=== PATIENT | male | born 1950 | race Caucasian/White ===

== ENCOUNTER 2018-04-04 09:12 | Inpatient (IN) | payer OTHER, MEDICARE ==
--- NOTE | 2018-04-04 09:32 | EDM.PDOC ---
ED HPI GENERAL MEDICAL PROBLEM - General Chief Complaint: Upper Extremity Injury/Pain Stated Complaint: [id number] FROM [place] Time Seen by Provider: 04/04/18 09:31 Source of Information: Reports: Patient, RN, RN Notes Reviewed, Other ([facility] report ) History Limitations: Reports: No Limitations - History of Present Illness INITIAL COMMENTS - FREE TEXT/NARRATIVE: Pt presents to the ER with c/o swollen, red left arm. Patient states he fell while trying to sit in a lawn chair a "few weeks ago". Pt states he was given Cephalexin by the ND. He has been taking as prescribed he states, but the left arm has become more swollen, red, hot. Patient admits to fever and chills. Denies N/V/D, chest pain, SOB. Patient states he also scraped the left knee, but that is healing. Onset: Gradual Duration: Getting Worse Location: Reports: Upper Extremity, Left Quality: Reports: Ache, Burning, Pressure Severity: Moderate Improves with: Reports: None Worsens with: Reports: None Associated Symptoms: Reports: Fever/Chills Left Lower Arm Pain Score (Numeric/FACES): 4 - Related Data Allergies Allergy/AdvReac Type Severity Reaction Status Date / Time simvastatin Allergy Cannot Verified 04/04/18 09:18 Remember Home Meds: Home Meds Albuterol Sulfate [Proair Respiclick] 90 mcg IH PRN 04/04/18 [History] Albuterol/Ipratropium [DuoNeb 3.0-0.5 MG/3 ML] 3 ml INH PRN 04/04/18 [History] Budesonide/Formoterol Fumarate [Symbicort 160-4.5 Mcg Inhaler] 10.2 gm INH BID 04/04/18 [History] Gabapentin [Neurontin] 600 mg PO BEDTIME 04/04/18 [History] Hydrochlorothiazide 12.5 mg PO DAILY 04/04/18 [History] Meloxicam [Mobic] 15 mg PO DAILY 04/04/18 [History] Omeprazole 20 mg PO QPM 04/04/18 [History] Tamsulosin HCl 0.4 mg PO DAILY 04/04/18 [History] Timolol Maleate [Timoptic 0.5% Ophth Soln] 1 ml EYERT DAILY 04/04/18 [History] atorvaSTATin Calcium [Atorvastatin Calcium] 20 mg PO BEDTIME 04/04/18 [History] Past Medical History HEENT History: Reports: Hard of Hearing, Impaired Vision Cardiovascular History: Reports: High Cholesterol, Hypertension Respiratory History: Reports: COPD Gastrointestinal History: Reports: GERD Genitourinary History: Reports: Prostate Disorder, Retention, Urinary Musculoskeletal History: Reports: Arthritis - Past Surgical History GI Surgical History: Reports: Hernia, Inguinal Social & Family History - Family History Family Medical History: Noncontributory - Tobacco Use Smoking Status *Q: Current Every Day Smoker Years of Tobacco use: 55 Packs/Tins Daily: 0.5 - Caffeine Use Caffeine Use: Reports: Coffee, Soda - Alcohol Use Days Per Week of Alcohol Use: 7 Number of Drinks Per Day: 2 Total Drinks Per Week: 14 - Recreational Drug Use Recreational Drug Use: No Review of Systems - Review of Systems Review Of Systems: ROS reveals no pertinent complaints other than HPI. ED EXAM, GENERAL - Physical Exam Exam: See Below Exam Limited By: No Limitations General Appearance: Alert, WD/WN, No Apparent Distress Eye Exam: Bilateral Eye: EOMI, Normal Inspection Ears: Normal External Exam, Hearing Grossly Normal Nose: Normal Inspection Throat/Mouth: Normal Inspection, Normal Voice, No Airway Compromise Head: Atraumatic, Normocephalic Neck: Normal Inspection, Supple, Non-Tender, Full Range of Motion Respiratory/Chest: No Respiratory Distress, Lungs Clear, Normal Breath Sounds, No Accessory Muscle Use, Chest Non-Tender Cardiovascular: Normal Peripheral Pulses, No Edema, No Gallop, No JVD, No Murmur , No Rub, Irregularly Irregular Peripheral Pulses: 2+: Radial (L), Radial (R) GI/Abdominal: Normal Bowel Sounds, Soft, Non-Tender, No Organomegaly, No Distention, No Abnormal Bruit, No Mass (Male) Exam: Deferred Rectal (Males) Exam: Deferred Back Exam: Normal Inspection, Full Range of Motion, NT Extremities: Normal Inspection, Non-Tender, No Pedal Edema, Normal Capillary Refill, Limited Range of Motion Neurological: Alert, Oriented, CN II-XII Intact, Normal Cognition, Normal Gait, Normal Reflexes, No Motor/Sensory Deficits Psychiatric: Normal Affect, Normal Mood Skin Exam: Warm, Dry, Erythema, Other (Cellulitis, induration lower left arm, hand, moving up into the left upper arm. ) Lymphatic: No Adenopathy Course - Vital Signs Last Recorded V/S: Last Vital Signs Temp 98.5 F 04/04/18 11:37 Pulse 76 04/04/18 11:37 Resp 18 04/04/18 11:37 BP 139/88 04/04/18 11:37 Pulse Ox 99 04/04/18 11:37 - Orders/Labs/Meds Orders: Active Orders 24 hr Category Date Time Status Peripheral IV Care [RC] . DIRECTED Care 04/04/18 09:40 Active Forearm wo Cont Lt [CT] Urgent Exams 04/04/18 10:41 Taken CULTURE BLOOD [BC] Stat Lab 04/04/18 09:46 Received CULTURE BLOOD [BC] Stat Lab 04/04/18 09:57 Received CULTURE WOUND [RM] Urgent Lab 04/04/18 09:40 Received Sodium Chloride 0.9% [Saline Flush] Med 04/04/18 09:39 Active 10 ml FLUSH ASDIRECTED PRN Blood Culture x2 Reflex Set [OM.PC] Stat Oth 04/04/18 09:40 Ordered Peripheral IV Insertion Adult [OM.PC] Stat Oth 04/04/18 09:39 Ordered Medication Orders Sodium Chloride (Saline Flush) 10 ml FLUSH ASDIRECTED PRN PRN Reason: Keep Vein Open Last Admin: 04/04/18 10:29 Dose: 10 ml Labs: Laboratory Tests 04/04/18 04/04/18 04/04/18 Range/Units 09:46 09:46 09:46 WBC 7.9 (5.0-10.0) 10^3/uL RBC 4.00 L (4.6-6.2) 10^6/uL Hgb 13.5 L (14.0-18.0) g/dL Hct 38.4 L (40.0-54.0) % MCV 96.0 (80-100) fL MCH 33.8 (27.0-34.0) pg MCHC 35.2 H (33.0-35.0) g/dL Plt Count 198 (150-450) 10^3/uL Neut % (Auto) 70.6 (42.2-75.2) % Lymph % (Auto) 13.2 L (20.5-50.1) % Cass % (Auto) 14.9 H (2-8) % Eos % (Auto) 1.0 (1.0-3.0) % Baso % (Auto) 0.3 (0.0-1.0) % Add Manual Diff Yes Neutrophils % (Manual) 67 (42-75) % Band Neutrophils % 1 % Lymphocytes % (Manual) 18 L (20-50) % Monocytes % (Manual) 10 H (2-8) % Eosinophils % (Manual) 2 (1-3) % Basophils % (Manual) 2 Toxic Granulation 2+ moderate Platelet Estimate Adequate Tear Drop Cells 1+ slight ESR 64 H (0-15) mm/hr Sodium 132 L (135-145) mmol/L Potassium 2.7 L (3.6-5.0) mmol/L Chloride 97 L (101-111) mmol/L Carbon Dioxide 27.0 (21.0-31.0) mmol/L Anion Gap 10.7 BUN 9 (7-18) mg/dL Creatinine 0.7 (0.6-1.3) mg/dL Est Cr Clr Drug Dosing 106.08 mL/min Estimated GFR (MDRD) > 60 BUN/Creatinine Ratio 12.85 Glucose 175 H (74-105) mg/dL Lactic Acid (0.5-2.2) mmol/L Calcium 8.3 L (8.4-10.2) mg/dl Total Bilirubin 0.4 (0.2-1.0) mg/dL AST 66 H (10-42) IU/L ALT 56 (10-60) IU/L Alkaline Phosphatase 113 (42-121) IU/L C-Reactive Protein 5.8 H (0.0-1.3) mg/dL Total Protein 6.6 L (6.7-8.2) g/dl Albumin 2.9 L (3.2-5.5) g/dl Globulin 3.7 Albumin/Globulin Ratio 0.78 /14/18 Range/Units 09:46 WBC (5.0-10.0) 10^3/uL RBC (4.6-6.2) 10^6/uL Hgb (14.0-18.0) g/dL Hct (40.0-54.0) % MCV (80-100) fL MCH (27.0-34.0) pg MCHC (33.0-35.0) g/dL Plt Count (150-450) 10^3/uL Neut % (Auto) (42.2-75.2) % Lymph % (Auto) (20.5-50.1) % Cass % (Auto) (2-8) % Eos % (Auto) (1.0-3.0) % Baso % (Auto) (0.0-1.0) % Add Manual Diff Neutrophils % (Manual) (42-75) % Band Neutrophils % % Lymphocytes % (Manual) (20-50) % Monocytes % (Manual) (2-8) % Eosinophils % (Manual) (1-3) % Basophils % (Manual) Toxic Granulation Platelet Estimate Tear Drop Cells ESR (0-15) mm/hr Sodium (135-145) mmol/L Potassium (3.6-5.0) mmol/L Chloride (101-111) mmol/L Carbon Dioxide (21.0-31.0) mmol/L Anion Gap BUN (7-18) mg/dL Creatinine (0.6-1.3) mg/dL Est Cr Clr Drug Dosing mL/min Estimated GFR (MDRD) BUN/Creatinine Ratio Glucose (74-105) mg/dL Lactic Acid 1.9 (0.5-2.2) mmol/L Calcium (8.4-10.2) mg/dl Total Bilirubin (0.2-1.0) mg/dL AST (10-42) IU/L ALT (10-60) IU/L Alkaline Phosphatase (42-121) IU/L C-Reactive Protein (0.0-1.3) mg/dL Total Protein (6.7-8.2) g/dl Albumin (3.2-5.5) g/dl Globulin Albumin/Globulin Ratio Meds: Medications Generic Name Dose Route Start Last Admin Trade Name Freq PRN Reason Stop Dose Admin Sodium Chloride 10 ml 04/04/18 09:39 04/04/18 10:29 Saline Flush FLUSH 10 ml ASDIRECTED PRN Administration Keep Vein Open Discontinued Medications Generic Name Dose Route Start Last Admin Trade Name Freq PRN Reason Stop Dose Admin Vancomycin HCl 1.5 gm/ Sodium 500 mls @ 334 mls/hr 04/04/18 09:40 04/04/18 10 :29 Chloride IV 04/04/18 11:09 334 mls/hr ONETIME ONE Administration Departure - Departure Time of Disposition: 12:00 Disposition: Admitted As Inpatient 65 Condition: Fair Clinical Impression: Hypokalemia Cellulitis Qualifiers: Site of cellulitis: extremity Site of cellulitis of extremity: upper extremity Laterality: left Qualified Code(s): L03.114 - Cellulitis of left upper limb - Discharge Information - My Orders Last 24 Hours: My Active Orders 04/04/18 09:39 Sodium Chloride 0.9% [Saline Flush] 10 ml FLUSH ASDIRECTED PRN Peripheral IV Insertion Adult [OM.PC] Stat 04/04/18 09:40 Peripheral IV Care [RC] . DIRECTED CULTURE WOUND [RM] Urgent Blood Culture x2 Reflex Set [OM.PC] Stat 04/04/18 09:46 CULTURE BLOOD [BC] Stat 04/04/18 09:57 CULTURE BLOOD [BC] Stat 04/04/18 10:41 Forearm wo Cont Lt [CT] Urgent - Assessment/Plan Last 24 Hours: My Active Orders 04/04/18 09:39 Sodium Chloride 0.9% [Saline Flush] 10 ml FLUSH ASDIRECTED PRN Peripheral IV Insertion Adult [OM.PC] Stat 04/04/18 09:40 Peripheral IV Care [RC] . DIRECTED CULTURE WOUND [RM] Urgent Blood Culture x2 Reflex Set [OM.PC] Stat 04/04/18 09:46 CULTURE BLOOD [BC] Stat 04/04/18 09:57 CULTURE BLOOD [BC] Stat 04/04/18 10:41 Forearm wo Cont Lt [CT] Urgent
[2018-04-04] MEDS ORDERED: Vancomycin 1.5 GM in Sodium Chloride 0.9% 500 ML IV ONE (09:40)
[2018-04-04 10:25] LABS: ANION GAP 10.7; CHLORIDE,CL 97 mmol/L (101-111); SODIUM,NA 132 mmol/L (135-145)
[2018-04-04] MEDS: Sodium Chloride 0.9% 10 ML Syringe FLUSH PRN ×6 (10:29→20:50)
--- NOTE | 2018-04-04 12:30 | CT ---
CLINICAL HISTORY: 68-year-old hypertensive 183 pound male smoker injured left forearm in a fall (2 we eks ago). Clinical "cellulitis". Rule out underlying fracture, foreign body or inflammatory periostit is. SCAN TECHNIQUE: Volume acquisition of data from an unenhanced CT scan of the left forearm including r adial/ulnar long bones, left elbow, left wrist, and left hand. All data archived in the PACS system f or storage, reformatting and study. INTERPRETATION: Homogeneous normal bone density. No sign of pathologic skeletal lesion, left long bone radial/ulnar fracture or elbow/wrist joint disl ocation. Mild reactive sclerosis radial carpal joint and cystic changes lunate/triquetrum proximal carpal row left wrist. Left hand positioned "palm down" demonstrating subcutaneous edema consistent with inflammation or "ce llulitis" dorsal ulnar aspect of the mid and proximal left forearm. No foreign bodies. No puncture wo und or subcutaneous air. No abnormal inflammatory periostitis of the underlying ulna or radius. CONCLUSION: No sign of fracture or long bone infection left forearm.
[2018-04-04] MEDS ORDERED: Acetaminophen/HYDROcodone 325-10 MG Tab PO PRN (12:41)
[2018-04-04] MEDS ORDERED: Morphine 2 MG/ML Syringe IVPUSH PRN (12:41)
[2018-04-04] MEDS ORDERED: Ondansetron 4 MG Tab.DIS PO PRN (12:41)
[2018-04-04] MEDS ORDERED: Zolpidem 5 MG Tab PO PRN (12:41)
[2018-04-04] MEDS ORDERED: Albuterol 6.7 GM Inhaler INH PRN (12:45)
[2018-04-04] MEDS ORDERED: Omeprazole 20 MG Cap.CR PO PRN (12:45)
[2018-04-04] MEDS ORDERED: Potassium Chloride 10 MEQ Tab.ER PO ONE (13:06)
[2018-04-04] MEDS: Potassium Chloride 10 MEQ Tab.ER PO SCH ×2 (13:40→18:15)
[2018-04-04] MEDS: Piperacillin/Tazobactam 3.375 GM in Sodium Chloride 0.9% 100 ML IV SCH ×2 (14:32→18:15)
[2018-04-04] MEDS: Gabapentin 300 MG Cap PO SCH (20:51)
[2018-04-04] MEDS: atorvaSTATin 20 MG Tab PO SCH (20:51)
[2018-04-04] MEDS: Formoterol/Mometasone 200-5 MCG 8.8 GM Inhaler IH SCH (21:00)
[2018-04-04] MEDS ORDERED: Vancomycin 1 GM SDV ONE (23:44)
[2018-04-05] MEDS: Sodium Chloride 0.9% 10 ML Syringe FLUSH PRN ×5 (00:17→06:13)
[2018-04-05] MEDS: Piperacillin/Tazobactam 3.375 GM in Sodium Chloride 0.9% 100 ML IV SCH ×5 (00:18→23:30)
[2018-04-05 06:47] LABS: ANION GAP 9.2; CHLORIDE,CL 104 mmol/L (101-111); SODIUM,NA 137 mmol/L (135-145)
--- NOTE | 2018-04-05 07:27 | HP ---
DATE OF SERVICE: 04/04/2018 CHIEF COMPLAINT: Swelling and pain to the left forearm. HISTORY OF PRESENTING ILLNESS: Mr. Leanna Flores is a 68-year-old male with medical history significant for hypertension, hyperlipidemia, history of chronic obstructive pulmonary airway disease, chronic alcohol use, and chronic tobacco use who presented to the ER today with complaints of having pain and swelling to the left forearm and noted to have intense cellulitis needing admission to the hospital. At this time, the patient claims that few weeks back he fell down on his back and injured his left forearm and noted to have a scab and last week he had an x- ray of the back and at that time the scab fell off, and since then has been resulting in increased swelling and pain to the left forearm. He grades the pain as 5 to 6/10 in intensity, aggravated on movement, relieved partially with pain medication, nonradiating type of pain, not associated with nausea or vomiting. Denied any fevers or chills at home. Denies any chest pain. No shortness of breath. No abdominal pain. The patient denied any history of chest pains on exertion, but has mild dyspnea on exertion. No history of orthopnea or paroxysmal nocturnal dyspnea. The patient denied any history of hematemesis, hematochezia, or melenic stools. Normal bowel and bladder habits otherwise. REVIEW OF SYSTEMS: A complete review of system including skin, ear, nose, and throat, cardiovascular system, respiratory system, gastrointestinal system, genitourinary system, hematology, oncology, neurology, allergy, immunology, constitutional were all evaluated. PAST MEDICAL HISTORY: Significant for hypertension, hyperlipidemia, chronic obstructive pulmonary airway disease, chronic alcohol use, chronic tobacco use. PAST SURGICAL HISTORY: Significant for tonsillectomy and hernia repair. FAMILY HISTORY: Significant for cancer in his father, hypertension and heart disease in his mother. Diabetes in his brother and his younger brother . SOCIAL HISTORY: The patient continues to smoke for 5-6 cigarettes a day and continues to drink alcohol every day, 1 beer a day. ALLERGIES: The patient says he has allergy to simvastatin. HOME MEDICATIONS: Include: 1. Lipitor 20 mg at bedtime. 2. Sildenafil 100 mg daily as needed. 3. Omeprazole 20 mg as needed. 4. Hydrochlorothiazide 12.5 mg daily. 5. Neurontin 600 mg at bedtime. 6. Symbicort 10.2 g inhalation twice a day. 7. DuoNeb 3 mL inhalation every 12 hours as needed. PHYSICAL EXAMINATION: Vital Signs: Temperature of 98.7, pulse of 73, blood pressure 130/75, respiratory rate of 20, and saturating at 98%. General Appearance: Patient is well oriented to time, place, and person. Follows commands spontaneously. Cardiovascular System: S1, S2 heard with normal intensity. No gallops. Respiratory System: Clear to auscultation bilaterally. No wheeze. No crepitations. Abdomen: Soft. Bowel sounds positive. Nontender. Extremities: No edema in bilateral lower extremities. The patient noted to have extensive erythema and swelling and tenderness to the left forearm from the elbow towards his hand. No active secretions noted but desquamation noted. Pulses well felt on the left upper extremity. NEUROLOGY: No gross focal neurological deficits. LABORATORY DATA: WBC 7.9, hemoglobin 13.5, hematocrit 38.4, platelet count 198. Sodium 132, potassium 2.7, chloride 97, bicarb 27, BUN 9, creatinine 0.7. Lactic acid 1.9. AST 66, ALT 56. C-reactive protein 5.9. ASSESSMENT: 1. Cellulitis involving the left forearm. 2. Hypertension. 3. Hyperlipidemia. 4. Chronic tobacco use. 5. Chronic alcohol use. PLAN: 1. Cellulitis. The patient is noted to have cellulitis involving the left forearm. This occurred after had a fall and developed a scab. We will have him on IV antibiotic Zosyn and vancomycin. We will follow with the blood cultures and titrate the antibiotics. His lactic acid is within normal limits. No signs of sepsis noted at this time. We will educate the patient to keep his left upper extremity elevated. We will consult occupational therapy to see if the patient can have lymphedema wraps to decrease the swelling and pain. We will closely follow. 2. Hypertension. The patient usually takes hydrochlorothiazide at home. We will hold the hydrochlorothiazide secondary to hypokalemia. He is also noted to be on lisinopril, continue the same. 3. DVT prophylaxis. We will have him on Lovenox for DVT prophylaxis. 4. Chronic alcohol use and tobacco use. The patient is educated about tobacco cessation and alcohol cessation. We will consider nicotine transdermal patch if he wants. The patient was explained about ill effects of drinking and smoking on his health and strongly encouraged him to quit drinking and smoking. 5. Code status. The patient wants to be DNR/DNI. 6. Discussed with Eli, ER physician, regarding the plan of care. Reviewed the labs and medications. Reviewed the old charts. [facility] /[id number]
[2018-04-05] MEDS: Potassium Chloride 10 MEQ Tab.ER PO SCH ×3 (09:48→17:18)
[2018-04-05] MEDS: Enoxaparin 40 MG/0.4 ML Syringe SUBCUT SCH (09:52)
[2018-04-05] MEDS: Formoterol/Mometasone 200-5 MCG 8.8 GM Inhaler IH SCH ×2 (10:04→20:52)
[2018-04-05] MEDS: Acetaminophen 325 MG Tab PO PRN ×2 (10:28→20:53)
--- NOTE | 2018-04-05 13:57 | PN ---
DATE: 04/05/2018 SUBJECTIVE: Mr. Roge Ram is a 68-year-old male with medical history significant for hypertension, hyperlipidemia, chronic obstructive pulmonary disease, chronic alcohol use, chronic tobacco use, admitted with complaints of left arm cellulitis and swelling and erythema. For the last 24 hours, the patient was started on IV antibiotics, broad-spectrum with IV Zosyn, vancomycin. He continues to have swelling and little pain but improved from the time of admission. His swelling in the hand got improved, but continues to have the swelling in the left forearm. He denies any chest pain. No shortness of breath. No abdominal pain. No nausea. No vomiting. No diarrhea. REVIEW OF SYSTEMS: Cardiovascular, respiratory, gastrointestinal, neurology, constitutional were all evaluated. PHYSICAL EXAMINATION: Vital Signs: Temperature of 98.6, pulse of 69, blood pressure of 132/65, respiratory rate of 20, saturating at 96%. General Appearance: The patient is alert and oriented to time, place, and person. Follows commands spontaneously. Cardiovascular System: S1, S2 heard with normal intensity. No gallops. Respiratory System: Clear to auscultation bilaterally. No wheeze. No crepitations. Abdomen: Soft. Bowel sounds positive. Nontender. No rigidity. Extremities: No edema, bilateral lower extremities. Left forearm continues to have swelling, but improved from the time of admission. Continues to have erythema and superficial skin peeling from the swelling. His pulses are felt well. His left hand swelling is improved from admission. Neurology: No gross focal neurological deficit. MEDICATIONS: Reviewed. Continue with, 1. Tylenol 650 every 4 hours as needed for pain and fever. 2. [place] 10/325 mg every 4 hours as needed for pain. 3. Albuterol as needed. 4. DuoNeb q.12 hours as needed. 5. Lipitor 20 mg at bedtime. 6. Lovenox 40 mg subcutaneous daily. 7. Neurontin 600 mg at bedtime. 8. Morphine 2 mg IV every 2 hours as needed for severe pain. 9. Omeprazole 20 mg at bedtime. 10.Zosyn every 6 hours. 11.Potassium chloride 20 mg 3 times a day. 12.Vancomycin, pharmacy to dose. 13.Ambien 5 mg at bedtime as needed for sleep. LABORATORY DATA: Labs reviewed, WBC 8.8, hemoglobin 11.6, hematocrit 33.9, platelet count 209. Sodium 137, potassium 3.2, chloride 104, bicarb 27, BUN 10, creatinine 0.7. ASSESSMENT: 1. Cellulitis. 2. Hypokalemia. 3. Hypertension. 4. Hyperlipidemia. 5. Chronic tobacco use. 6. Chronic alcohol use. 7. Chronic obstructive pulmonary disease. PLAN: 1. Cellulitis. The patient has been admitted with left forearm cellulitis which seems to be improved. Continue with IV antibiotics, Zosyn, vancomycin. Pharmacy to dose the vancomycin. Awaiting for blood cultures and we will titrate the antibiotics once we have the culture reports available. The patient is encouraged to keep his left elevated to improve its swelling and pain. Continue with pain medications. 2. Hypertension. The patient's blood pressure seems to be well controlled. He was on hydrochlorothiazide, but we had to hold the hydrochlorothiazide secondary to hypokalemia. We will resume the hydrochlorothiazide once he is more stable. 3. COPD, remains stable. Continue with current inhalation nebulizer treatment. [facility] /[id number]
[2018-04-05] MEDS: Albuterol/Ipratropium 3.0-0.5 MG/3 ML Neb Soln INH PRN (16:47)
[2018-04-05] MEDS ORDERED: ALPRAZolam 0.5 MG Tab PO PRN (16:50)
[2018-04-05] MEDS: ALPRAZolam 0.5 MG Tab PO PRN (17:17)
[2018-04-05] MEDS: atorvaSTATin 20 MG Tab PO SCH (20:53)
[2018-04-05] MEDS: Gabapentin 300 MG Cap PO SCH (20:53)
[2018-04-06] MEDS: Piperacillin/Tazobactam 3.375 GM in Sodium Chloride 0.9% 100 ML IV SCH ×3 (06:02→17:40)
[2018-04-06] MEDS: Enoxaparin 40 MG/0.4 ML Syringe SUBCUT SCH (08:13)
[2018-04-06] MEDS: Potassium Chloride 10 MEQ Tab.ER PO SCH ×3 (08:13→17:38)
[2018-04-06] MEDS: Formoterol/Mometasone 200-5 MCG 8.8 GM Inhaler IH SCH ×2 (08:14→21:20)
[2018-04-06] MEDS: Sodium Chloride 0.9% 10 ML Syringe FLUSH PRN ×3 (10:28→17:40)
--- NOTE | 2018-04-06 13:35 | PN ---
DATE: 04/06/2018 HISTORY OF PRESENT ILLNESS: Mr. Roge Ram is a 68-year-old male with medical history significant for hypertension, hyperlipidemia, chronic obstructive pulmonary disease, chronic alcohol use, chronic tobacco use, was admitted to the hospital with complaints of left arm swelling and pain and noted to have cellulitis. For the last 24 hours, the patient was noted to have a low-grade temperature of 100 overnight. He is continued on IV antibiotics. He also had some anxiety spells requiring Xanax. He denies any chest pains or shortness of breath. No abdominal pain. No nausea. No vomiting. No diarrhea. REVIEW OF SYSTEMS: Cardiovascular, respiratory, gastrointestinal, neurology, constitutional were all evaluated. PHYSICAL EXAMINATION: Vital Signs: Temperature of 99.1, T-max of 100.6, pulse of 81, blood pressure of 126/63, respiratory rate of 20, saturating at 96% on room air. General Appearance: The patient is well oriented to time, place, and person. Follows commands spontaneously. Cardiovascular System: S1, S2 heard with normal intensity. No gallops. Respiratory System: Clear to auscultation bilaterally. No wheeze. No crepitations. Abdomen: Soft. Bowel sounds positive. Nontender. No rigidity. Extremities: No edema, bilateral lower extremities. Erythema and swelling noted towards the left forearm. Swelling improved on the hand. Pulses felt well. MEDICATIONS: Reviewed, continue the same. 1. Continue with Lovenox for DVT prophylaxis. 2. Neurontin at bedtime. 3. Zosyn q.6 hourly. 4. Vancomycin, pharmacy to dose. 5. Ambien at bedtime as needed for sleep. 6. Xanax as needed for anxiety. LABORATORY DATA: Potassium 3.6. ASSESSMENT: 1. Cellulitis involving the left forearm. 2. Anxiety. 3. Hypokalemia. 4. Hypertension. 5. Hyperlipidemia. 6. Chronic obstructive pulmonary disease. PLAN: 1. Cellulitis. The patient is currently on Zosyn, vancomycin. His skin culture is showing some Staph and Streptococcus, unsure if this is a contaminant, but his blood cultures remained negative. Continue with current IV antibiotic regimen. We will further titrate the antibiotics. 2. Chronic obstructive pulmonary disease. The patient is currently on inhalation treatments and nebulizers, continue the same. 3. Anxiety. The patient often has anxiety attacks. We started on Xanax, continue the same. 4. DVT prophylaxis. Continue with Lovenox for DVT prophylaxis. 5. Hypokalemia. The patient is on oral potassium chloride. Recheck a basic metabolic panel in a.m. [facility] /[id number]
[2018-04-06] MEDS: Acetaminophen 325 MG Tab PO PRN (16:49)
[2018-04-06] MEDS: Gabapentin 300 MG Cap PO SCH (21:19)
[2018-04-06] MEDS: atorvaSTATin 20 MG Tab PO SCH (21:19)
[2018-04-07] MEDS: Piperacillin/Tazobactam 3.375 GM in Sodium Chloride 0.9% 100 ML IV SCH ×6 (00:35→22:22)
[2018-04-07] MEDS: Acetaminophen 325 MG Tab PO PRN ×2 (06:13→22:32)
[2018-04-07] MEDS: Potassium Chloride 10 MEQ Tab.ER PO SCH ×2 (08:37→12:35)
[2018-04-07] MEDS: Enoxaparin 40 MG/0.4 ML Syringe SUBCUT SCH (08:37)
[2018-04-07] MEDS: Formoterol/Mometasone 200-5 MCG 8.8 GM Inhaler IH SCH ×2 (08:38→21:59)
[2018-04-07] MEDS ORDERED: Piperacillin/Tazobactam 3.375 GM in Sodium Chloride 0.9% 100 ML IV SCH (12:30)
--- NOTE | 2018-04-07 12:36 | PCM.PN ---
- General Info Date of Service: 04/07/18 Subjective Update: The patient was admitted with left upper extremity redness, swelling. He has been treated for cellulitis. He feels that the swelling has much improved, redness improved and involves a smaller area. There is no associated chest pain, abdominal pain. He has been urinating well. - Patient Data Vitals - Most Recent: Last Vital Signs Temp 37.3 C 04/07/18 11:00 Pulse 80 04/07/18 11:00 Resp 20 04/07/18 11:00 BP 137/95 H 04/07/18 11:00 Pulse Ox 91 L 04/07/18 11:00 Weight - Most Recent: 81.647 kg I&O - Last 24 Hours: Intake & Output 04/06/18 04/07/18 04/07/18 22:59 06:59 14:59 Intake Total 770 374 200 Output Total 325 Balance 770 374 -125 Lab Results Last 24 Hours: Laboratory Results - last 24 hr 04/07/18 04/07/18 04/07/18 Range/Units 10:03 10:03 10:03 WBC 14.5 H (5.0-10.0) 10^3/uL RBC 3.37 L (4.6-6.2) 10^6/uL Hgb 11.5 L (14.0-18.0) g/dL Hct 33.8 L (40.0-54.0) % MCV 100.3 H (80-100) fL MCH 34.1 H (27.0-34.0) pg MCHC 34.0 (33.0-35.0) g/dL Plt Count 276 (150-450) 10^3/uL Sodium 136 (135-145) mmol/L Potassium 4.0 (3.6-5.0) mmol/L Chloride 105 (101-111) mmol/L Carbon Dioxide 20.0 L (21.0-31.0) mmol/L Anion Gap 15.0 BUN 18 (7-18) mg/dL Creatinine 2.6 H D (0.6-1.3) mg/dL Est Cr Clr Drug Dosing 27.69 mL/min Estimated GFR (MDRD) 25 Glucose 136 H (74-105) mg/dL Calcium 8.3 L (8.4-10.2) mg/dl Vancomycin Trough 36.0 H (10-15) ug/ml Go Results Last 24 Hours: Microbiology 04/04/18 09:57 Aerobic Blood Culture - Preliminary Blood - Venous NO GROWTH AFTER 3 DAYS Anaerobic Blood Culture - Preliminary NO GROWTH AFTER 3 DAYS 04/04/18 09:46 Aerobic Blood Culture - Preliminary Blood - Venous - Lab Draw NO GROWTH AFTER 3 DAYS Anaerobic Blood Culture - Preliminary NO GROWTH AFTER 3 DAYS 04/04/18 09:40 Wound Culture - Final Arm, Left Staphylococcus Aureus Streptococcus Group A Med Orders - Current: Current Medications Acetaminophen (Tylenol) 650 mg PO Q4H PRN PRN Reason: Pain (Mild 1-3)/fever Last Admin: 04/07/18 06:13 Dose: 650 mg Hydrocodone Bitart/Acetaminophen ([place] 325-10 Mg) 1 tab PO Q4H PRN PRN Reason: Pain (moderate 4-6) Albuterol (Proventil Hfa) 0 gm INH Q6H PRN PRN Reason: Shortness of Breath Albuterol/Ipratropium (Duoneb 3.0-0.5 Mg/3 Ml) 3 ml INH Q12H PRN PRN Reason: Shortness of Breath Last Admin: 04/05/18 16:47 Dose: 3 ml Alprazolam (Xanax) 1 mg PO Q8H PRN PRN Reason: Anxiety Last Admin: 04/05/18 17:17 Dose: 1 mg Atorvastatin Calcium (Lipitor) 20 mg PO BEDTIME [facility] Last Admin: 04/06/18 21:19 Dose: 20 mg Enoxaparin Sodium (Lovenox) 40 mg SUBCUT DAILY [facility] Last Admin: 04/07/18 08:37 Dose: 40 mg Gabapentin (Neurontin) 600 mg PO BEDTIME [facility] Last Admin: 04/06/18 21:19 Dose: 600 mg Piperacillin Sod/Tazobactam (Sod 3.375 gm/ Sodium Chloride) 100 mls @ 200 mls/ hr IV Q8H [facility] Mometasone Furoate/Formoterol Fumar (Dulera 200-5 Mcg) 2 puff IH BID [facility] Last Admin: 04/07/18 08:38 Dose: 2 puff Morphine Sulfate (Morphine) 2 mg IVPUSH Q2H PRN PRN Reason: Pain (severe 7-10) Omeprazole (Omeprazole) 20 mg PO BEDTIME PRN PRN Reason: Heartburn Ondansetron HCl (Zofran Odt) 4 mg PO Q4H PRN PRN Reason: nausea, able to take PO Paroxetine HCl (Paxil) 20 mg PO DAILY [facility] Sodium Chloride (Saline Flush) 10 ml FLUSH ASDIRECTED PRN PRN Reason: Keep Vein Open Last Admin: 04/06/18 17:40 Dose: 10 ml Zolpidem Tartrate (Ambien) 5 mg PO BEDTIME PRN PRN Reason: Sleep Discontinued Medications Alprazolam (Xanax) 0.5 mg PO Q8H PRN PRN Reason: Anxiety Vancomycin HCl 1.5 gm/ Sodium (Chloride) 500 mls @ 334 mls/hr IV ONETIME ONE Stop: 04/04/18 11:09 Last Admin: 04/04/18 10:29 Dose: 334 mls/hr Piperacillin Sod/Tazobactam (Sod 3.375 gm/ Sodium Chloride) 100 mls @ 200 mls/ hr IV Q6HR [facility] Last Admin: 04/07/18 06:06 Dose: 200 mls/hr Vancomycin HCl 1.25 gm/ Sodium (Chloride) 250 mls @ 166.667 mls/hr IV Q8H [facility] Last Admin: 04/05/18 17:08 Dose: Not Given Vancomycin HCl 1 gm/ Sodium (Chloride) 250 mls @ 166.667 mls/hr IV Q12H [facility] Last Admin: 04/07/18 10:57 Dose: Not Given Non-Formulary Medication (Meloxicam [Mobic]) 15 mg PO DAILY [facility] Potassium Chloride (Klor-Con 10) 40 meq PO ONETIME ONE Stop: 04/04/18 13:07 Last Admin: 04/04/18 14:30 Dose: 40 meq Potassium Chloride (Klor-Con 10) 20 meq PO TIDMEALS [facility] Last Admin: 04/07/18 08:37 Dose: 20 meq Vancomycin HCl (Pharmacy To Dose - Vancomycin) 1 dose .XX ASDIRECTED [facility] Vancomycin HCl (Vancomycin) Confirm Administered Dose 2 gm .ROUTE .STK-MED ONE Stop: 04/04/18 23:45 Last Admin: 04/05/18 01:26 Dose: Not Given - Exam General: Alert, Oriented Neck: Supple Lungs: Clear to Auscultation, Normal Respiratory Effort Cardiovascular: Regular Rate, Regular Rhythm GI/Abdominal Exam: Normal Bowel Sounds, Soft, Non-Tender Extremities: Other (Left upper extremity with trace edema) Skin: Other (Left upper extremity. Erythema, swelling, mild tenderness) Psy/Mental Status: Alert, Normal Affect, Normal Mood, Other (Complains of episodes of anxiety mostly at night) - Problem List & Annotations (1) Cellulitis SNOMED Code(s): 763783486 Code(s): L03.90 - CELLULITIS, UNSPECIFIED Status: Acute Current Visit: Yes Qualifiers: Site of cellulitis: extremity Site of cellulitis of extremity: upper extremity Laterality: left Qualified Code(s): L03.114 - Cellulitis of left upper limb - Problem List Review Problem List Initiated/Reviewed/Updated: Yes - My Orders Last 24 Hours: My Active Orders 04/07/18 12:30 Piperacillin/Tazobactam [Zosyn] 3.375 gm Sodium Chloride 0.9% [Normal Saline] 100 ml IV Q8H 04/08/18 05:15 BASIC METABOLIC PANEL,BMP [CHEM] AM CBC WITH AUTO DIFF [HEME] AM 04/08/18 09:00 PARoxetine [Paxil] 20 mg PO DAILY - Plan Plan:: Cellulitis of the left arm Improving Has been treated with Zosyn and vancomycin Due to acute renal failure rest of the vancomycin Decrease dose of Zosyn Acute renal failure Likely relates to vancomycin, stop vancomycin Hypokalemia Has resolved Stop oral supplement COPD Treat with mometasone, formoterol scheduled, albuterol prn Anxiety Will use Xanax as needed Will start Paxil
[2018-04-07] MEDS: MELOXICAM 15 MG PO SCH ×3 (12:37→14:00)
[2018-04-07] MEDS: Sodium Chloride 0.9% 10 ML Syringe FLUSH PRN (13:46)
[2018-04-07] MEDS: ALPRAZolam 0.5 MG Tab PO PRN (17:54)
[2018-04-07] MEDS: Albuterol/Ipratropium 3.0-0.5 MG/3 ML Neb Soln INH PRN (21:58)
[2018-04-07] MEDS: atorvaSTATin 20 MG Tab PO SCH (21:58)
[2018-04-07] MEDS: Gabapentin 300 MG Cap PO SCH (21:58)
[2018-04-08] MEDS: Piperacillin/Tazobactam 3.375 GM in Sodium Chloride 0.9% 100 ML IV SCH ×3 (06:09→22:28)
[2018-04-08 06:57] LABS: ANION GAP 12.2
[2018-04-08] MEDS: Enoxaparin 40 MG/0.4 ML Syringe SUBCUT SCH (08:29)
[2018-04-08] MEDS: PARoxetine 20 MG Tab PO SCH ×2 (08:30→10:16)
[2018-04-08] MEDS: Formoterol/Mometasone 200-5 MCG 8.8 GM Inhaler IH SCH ×2 (08:32→21:54)
--- NOTE | 2018-04-08 11:50 | PCM.PN ---
- General Info Date of Service: 04/08/18 Subjective Update: The patient was admitted with left upper extremity redness, swelling. He has been treated for cellulitis. He feels that the swelling has much improved, redness improved and involves a smaller area. He is reporting being anxious. Xanax is helping. There is no associated chest pain, abdominal pain. - Review of Systems General: Reports: Fever Pulmonary: Denies: Shortness of Breath Cardiovascular: Denies: Chest Pain Gastrointestinal: Denies: Abdominal Pain Neurological: Denies: Confusion Psychiatric: Reports: Anxiety - Patient Data Vitals - Most Recent: Last Vital Signs Temp 37.1 C 04/08/18 07:46 Pulse 79 04/08/18 07:46 Resp 20 04/08/18 07:46 BP 146/72 H 04/08/18 07:46 Pulse Ox 95 04/08/18 07:46 Weight - Most Recent: 81.647 kg I&O - Last 24 Hours: Intake & Output 04/07/18 04/08/18 04/08/18 22:59 06:59 14:59 Intake Total 725 480 Balance 725 480 Lab Results Last 24 Hours: Laboratory Results - last 24 hr 04/08/18 04/08/18 Range/Units 06:20 06:20 WBC 11.7 H (5.0-10.0) 10^3/uL RBC 3.06 L (4.6-6.2) 10^6/uL Hgb 10.3 L (14.0-18.0) g/dL Hct 31.1 L (40.0-54.0) % MCV 101.6 H (80-100) fL MCH 33.7 (27.0-34.0) pg MCHC 33.1 (33.0-35.0) g/dL Plt Count 254 (150-450) 10^3/uL Neut % (Auto) 81.7 H (42.2-75.2) % Lymph % (Auto) 9.1 L (20.5-50.1) % [place] % (Auto) 8.2 H (2-8) % Eos % (Auto) 0.6 L (1.0-3.0) % Baso % (Auto) 0.4 (0.0-1.0) % Add Manual Diff Yes Neutrophils % (Manual) 85 H (42-75) % Lymphocytes % (Manual) 9 L (20-50) % Monocytes % (Manual) 6 (2-8) % Sodium 140 (135-145) mmol/L Potassium 3.2 L (3.6-5.0) mmol/L Chloride 108 (101-111) mmol/L Carbon Dioxide 23.0 (21.0-31.0) mmol/L Anion Gap 12.2 BUN 20 H (7-18) mg/dL Creatinine 2.5 H (0.6-1.3) mg/dL Est Cr Clr Drug Dosing 28.79 mL/min Estimated GFR (MDRD) 26 Glucose 85 (74-105) mg/dL Calcium 7.8 L (8.4-10.2) mg/dl Go Results Last 24 Hours: Microbiology 04/04/18 09:57 Aerobic Blood Culture - Preliminary Blood - Venous NO GROWTH AFTER 4 DAYS Anaerobic Blood Culture - Preliminary NO GROWTH AFTER 4 DAYS 04/04/18 09:46 Aerobic Blood Culture - Preliminary Blood - Venous - Lab Draw NO GROWTH AFTER 4 DAYS Anaerobic Blood Culture - Preliminary NO GROWTH AFTER 4 DAYS 04/04/18 09:40 Wound Culture - Final Arm, Left Staphylococcus Aureus Streptococcus Group A Med Orders - Current: Current Medications Acetaminophen (Tylenol) 650 mg PO Q4H PRN PRN Reason: Pain (Mild 1-3)/fever Last Admin: 04/07/18 22:32 Dose: 650 mg Hydrocodone Bitart/Acetaminophen ([place] 325-10 Mg) 1 tab PO Q4H PRN PRN Reason: Pain (moderate 4-6) Albuterol (Proventil Hfa) 0 gm INH Q6H PRN PRN Reason: Shortness of Breath Albuterol/Ipratropium (Duoneb 3.0-0.5 Mg/3 Ml) 3 ml INH Q12H PRN PRN Reason: Shortness of Breath Last Admin: 04/07/18 21:58 Dose: 3 ml Alprazolam (Xanax) 1 mg PO Q8H PRN PRN Reason: Anxiety Last Admin: 04/07/18 17:54 Dose: 1 mg Atorvastatin Calcium (Lipitor) 20 mg PO BEDTIME [facility] Last Admin: 04/07/18 21:58 Dose: 20 mg Enoxaparin Sodium (Lovenox) 40 mg SUBCUT DAILY [facility] Last Admin: 04/08/18 08:29 Dose: 40 mg Gabapentin (Neurontin) 600 mg PO BEDTIME [facility] Last Admin: 04/07/18 21:58 Dose: 600 mg Piperacillin Sod/Tazobactam (Sod 3.375 gm/ Sodium Chloride) 100 mls @ 200 mls/ hr IV Q8HR [facility] Last Admin: 04/08/18 06:09 Dose: 200 mls/hr Mometasone Furoate/Formoterol Fumar (Dulera 200-5 Mcg) 2 puff IH BID [facility] Last Admin: 04/08/18 08:32 Dose: 2 puff Morphine Sulfate (Morphine) 2 mg IVPUSH Q2H PRN PRN Reason: Pain (severe 7-10) Omeprazole (Omeprazole) 20 mg PO BEDTIME PRN PRN Reason: Heartburn Ondansetron HCl (Zofran Odt) 4 mg PO Q4H PRN PRN Reason: nausea, able to take PO Paroxetine HCl (Paxil) 20 mg PO DAILY [facility] Last Admin: 04/08/18 10:16 Dose: 20 mg Potassium Chloride (Klor-Con 10) 20 meq PO BIDMEALS [facility] Stop: 04/08/18 18:01 Sodium Chloride (Saline Flush) 10 ml FLUSH ASDIRECTED PRN PRN Reason: Keep Vein Open Last Admin: 04/07/18 13:46 Dose: 10 ml Zolpidem Tartrate (Ambien) 5 mg PO BEDTIME PRN PRN Reason: Sleep Discontinued Medications Alprazolam (Xanax) 0.5 mg PO Q8H PRN PRN Reason: Anxiety Vancomycin HCl 1.5 gm/ Sodium (Chloride) 500 mls @ 334 mls/hr IV ONETIME ONE Stop: 04/04/18 11:09 Last Admin: 04/04/18 10:29 Dose: 334 mls/hr Piperacillin Sod/Tazobactam (Sod 3.375 gm/ Sodium Chloride) 100 mls @ 200 mls/ hr IV Q6HR [facility] Last Admin: 04/07/18 12:38 Dose: Not Given Vancomycin HCl 1.25 gm/ Sodium (Chloride) 250 mls @ 166.667 mls/hr IV Q8H [facility] Last Admin: 04/05/18 17:08 Dose: Not Given Vancomycin HCl 1 gm/ Sodium (Chloride) 250 mls @ 166.667 mls/hr IV Q12H [facility] Last Admin: 04/07/18 10:57 Dose: Not Given Non-Formulary Medication (Meloxicam [Mobic]) 15 mg PO DAILY [facility] Last Admin: 04/07/18 14:00 Dose: Not Given Potassium Chloride (Klor-Con 10) 40 meq PO ONETIME ONE Stop: 04/04/18 13:07 Last Admin: 04/04/18 14:30 Dose: 40 meq Potassium Chloride (Klor-Con 10) 20 meq PO TIDMEALS [facility] Last Admin: 04/07/18 12:35 Dose: Not Given Vancomycin HCl (Pharmacy To Dose - Vancomycin) 1 dose .XX ASDIRECTED [facility] Vancomycin HCl (Vancomycin) Confirm Administered Dose 2 gm .ROUTE .STK-MED ONE Stop: 04/04/18 23:45 Last Admin: 04/05/18 01:26 Dose: Not Given - Exam Quality Assessment: Supplemental Oxygen General: Alert, Oriented Neck: Supple Lungs: Clear to Auscultation, Normal Respiratory Effort Cardiovascular: Regular Rate, Regular Rhythm GI/Abdominal Exam: Normal Bowel Sounds, Soft, Non-Tender Extremities: No Pedal Edema Skin: Warm, Dry, Other (Left upper extremity mild redness, dry skin) Neurological: No New Focal Deficit Psy/Mental Status: Alert, Normal Affect, Normal Mood - Problem List & Annotations (1) Cellulitis SNOMED Code(s): 590077444 Code(s): L03.90 - CELLULITIS, UNSPECIFIED Status: Acute Current Visit: Yes Qualifiers: Site of cellulitis: extremity Site of cellulitis of extremity: upper extremity Laterality: left Qualified Code(s): L03.114 - Cellulitis of left upper limb - Problem List Review Problem List Initiated/Reviewed/Updated: Yes - My Orders Last 24 Hours: My Active Orders 04/07/18 14:00 Piperacillin/Tazobactam [Zosyn] 3.375 gm Sodium Chloride 0.9% [Normal Saline] 100 ml IV Q8HR 04/08/18 09:00 PARoxetine [Paxil] 20 mg PO DAILY 04/08/18 12:00 Potassium Chloride [Klor-Con 10] 20 meq PO BIDMEALS 04/09/18 05:15 BASIC METABOLIC PANEL,BMP [CHEM] AM CBC WITH AUTO DIFF [HEME] AM - Plan Plan:: Cellulitis of the left arm Improving Has been treated with Zosyn and vancomycin Due to acute renal failure stopped the vancomycin continue Zosyn Acute renal failure Likely relates to vancomycin, stop vancomycin off jero inhibitor will monitor Hypokalemia continue to replace will recheck in AMt COPD Treat with mometasone, formoterol scheduled, albuterol prn Anxiety Will use Xanax as needed Started Paxil DVT prophylaxis with Lovenox
[2018-04-08] MEDS: Sodium Chloride 0.9% 10 ML Syringe FLUSH PRN ×3 (14:09→23:00)
[2018-04-08] MEDS: Potassium Chloride 10 MEQ Tab.ER PO SCH ×2 (14:10→17:14)
[2018-04-08] MEDS: atorvaSTATin 20 MG Tab PO SCH (21:54)
[2018-04-08] MEDS: Gabapentin 300 MG Cap PO SCH (21:54)
[2018-04-08] MEDS: Albuterol/Ipratropium 3.0-0.5 MG/3 ML Neb Soln INH PRN (22:16)
[2018-04-09] MEDS: Sodium Chloride 0.9% 10 ML Syringe FLUSH PRN ×3 (05:44→14:57)
[2018-04-09] MEDS: Piperacillin/Tazobactam 3.375 GM in Sodium Chloride 0.9% 100 ML IV SCH ×3 (05:45→21:22)
[2018-04-09 06:28] LABS: ANION GAP 11.6
[2018-04-09] MEDS: Enoxaparin 40 MG/0.4 ML Syringe SUBCUT SCH (09:28)
[2018-04-09] MEDS: PARoxetine 20 MG Tab PO SCH (09:28)
[2018-04-09] MEDS: Formoterol/Mometasone 200-5 MCG 8.8 GM Inhaler IH SCH ×2 (09:29→20:12)
--- NOTE | 2018-04-09 13:22 | PCM.PN ---
- General Info Date of Service: 04/09/18 Admission Dx/Problem (Free Text): Cellulitis of left upper extremity Subjective Update: The patient was admitted with left upper extremity redness, swelling. He has been treated for cellulitis. He feels that the swelling has much improved, redness improved. He is reporting being anxious. Xanax is helping. There is no associated chest pain, abdominal pain. He was started on oxygen supplement via nasal cannula when oxygen saturation was 88% on room air Functional Status: Reports: Pain Controlled - Review of Systems General: Denies: Fever Pulmonary: Denies: Shortness of Breath Cardiovascular: Denies: Chest Pain Neurological: Denies: Confusion - Patient Data Vitals - Most Recent: Last Vital Signs Temp 37.1 C 04/09/18 11:00 Pulse 88 04/09/18 11:00 Resp 20 04/09/18 11:00 BP 140/88 04/09/18 11:00 Pulse Ox 95 04/09/18 11:00 Weight - Most Recent: 81.647 kg I&O - Last 24 Hours: Intake & Output 04/08/18 04/09/18 04/09/18 22:59 06:59 14:59 Intake Total 1410 811 655 Balance 1410 811 655 Lab Results Last 24 Hours: Laboratory Results - last 24 hr 04/09/18 04/09/18 Range/Units 05:15 05:15 WBC 10.2 H (5.0-10.0) 10^3/uL RBC 3.24 L (4.6-6.2) 10^6/uL Hgb 10.8 L (14.0-18.0) g/dL Hct 32.5 L (40.0-54.0) % MCV 100.3 H (80-100) fL MCH 33.3 (27.0-34.0) pg MCHC 33.2 (33.0-35.0) g/dL Plt Count 280 (150-450) 10^3/uL Neut % (Auto) 80.4 H (42.2-75.2) % Lymph % (Auto) 10.1 L (20.5-50.1) % [place] % (Auto) 7.9 (2-8) % Eos % (Auto) 1.0 (1.0-3.0) % Baso % (Auto) 0.6 (0.0-1.0) % Sodium 138 (135-145) mmol/L Potassium 3.6 (3.6-5.0) mmol/L Chloride 108 (101-111) mmol/L Carbon Dioxide 22.0 (21.0-31.0) mmol/L Anion Gap 11.6 BUN 22 H (7-18) mg/dL Creatinine 2.5 H (0.6-1.3) mg/dL Est Cr Clr Drug Dosing 28.79 mL/min Estimated GFR (MDRD) 26 Glucose 124 H (74-105) mg/dL Calcium 8.2 L (8.4-10.2) mg/dl Go Results Last 24 Hours: Microbiology 04/04/18 09:57 Aerobic Blood Culture - Final Blood - Venous NO GROWTH AFTER 5 DAYS Anaerobic Blood Culture - Final NO GROWTH AFTER 5 DAYS 04/04/18 09:46 Aerobic Blood Culture - Final Blood - Venous - Lab Draw NO GROWTH AFTER 5 DAYS Anaerobic Blood Culture - Final NO GROWTH AFTER 5 DAYS Med Orders - Current: Current Medications Acetaminophen (Tylenol) 650 mg PO Q4H PRN PRN Reason: Pain (Mild 1-3)/fever Last Admin: 04/07/18 22:32 Dose: 650 mg Hydrocodone Bitart/Acetaminophen ([place] 325-10 Mg) 1 tab PO Q4H PRN PRN Reason: Pain (moderate 4-6) Albuterol (Proventil Hfa) 0 gm INH Q6H PRN PRN Reason: Shortness of Breath Albuterol/Ipratropium (Duoneb 3.0-0.5 Mg/3 Ml) 3 ml INH Q12H PRN PRN Reason: Shortness of Breath Last Admin: 04/08/18 22:16 Dose: 3 ml Alprazolam (Xanax) 1 mg PO Q8H PRN PRN Reason: Anxiety Last Admin: 04/07/18 17:54 Dose: 1 mg Atorvastatin Calcium (Lipitor) 20 mg PO BEDTIME [facility] Last Admin: 04/08/18 21:54 Dose: 20 mg Enoxaparin Sodium (Lovenox) 40 mg SUBCUT DAILY [facility] Last Admin: 04/09/18 09:28 Dose: 40 mg Gabapentin (Neurontin) 600 mg PO BEDTIME [facility] Last Admin: 04/08/18 21:54 Dose: 600 mg Piperacillin Sod/Tazobactam (Sod 3.375 gm/ Sodium Chloride) 100 mls @ 200 mls/ hr IV Q8HR [facility] Last Infusion: 04/09/18 06:30 Dose: Infused Mometasone Furoate/Formoterol Fumar (Dulera 200-5 Mcg) 2 puff IH BID [facility] Last Admin: 04/09/18 09:29 Dose: 2 puff Morphine Sulfate (Morphine) 2 mg IVPUSH Q2H PRN PRN Reason: Pain (severe 7-10) Omeprazole (Omeprazole) 20 mg PO BEDTIME PRN PRN Reason: Heartburn Ondansetron HCl (Zofran Odt) 4 mg PO Q4H PRN PRN Reason: nausea, able to take PO Paroxetine HCl (Paxil) 20 mg PO DAILY [facility] Last Admin: 04/09/18 09:28 Dose: 20 mg Sodium Chloride (Saline Flush) 10 ml FLUSH ASDIRECTED PRN PRN Reason: Keep Vein Open Last Admin: 04/09/18 06:31 Dose: 10 ml Zolpidem Tartrate (Ambien) 5 mg PO BEDTIME PRN PRN Reason: Sleep Discontinued Medications Alprazolam (Xanax) 0.5 mg PO Q8H PRN PRN Reason: Anxiety Vancomycin HCl 1.5 gm/ Sodium (Chloride) 500 mls @ 334 mls/hr IV ONETIME ONE Stop: 04/04/18 11:09 Last Admin: 04/04/18 10:29 Dose: 334 mls/hr Piperacillin Sod/Tazobactam (Sod 3.375 gm/ Sodium Chloride) 100 mls @ 200 mls/ hr IV Q6HR [facility] Last Admin: 04/07/18 12:38 Dose: Not Given Vancomycin HCl 1.25 gm/ Sodium (Chloride) 250 mls @ 166.667 mls/hr IV Q8H [facility] Last Admin: 04/05/18 17:08 Dose: Not Given Vancomycin HCl 1 gm/ Sodium (Chloride) 250 mls @ 166.667 mls/hr IV Q12H [facility] Last Admin: 04/07/18 10:57 Dose: Not Given Non-Formulary Medication (Meloxicam [Mobic]) 15 mg PO DAILY [facility] Last Admin: 04/07/18 14:00 Dose: Not Given Potassium Chloride (Klor-Con 10) 40 meq PO ONETIME ONE Stop: 04/04/18 13:07 Last Admin: 04/04/18 14:30 Dose: 40 meq Potassium Chloride (Klor-Con 10) 20 meq PO TIDMEALS [facility] Last Admin: 04/07/18 12:35 Dose: Not Given Potassium Chloride (Klor-Con 10) 20 meq PO BIDMEALS [facility] Stop: 04/08/18 18:01 Last Admin: 04/08/18 17:14 Dose: 20 meq Vancomycin HCl (Pharmacy To Dose - Vancomycin) 1 dose .XX ASDIRECTED [facility] Vancomycin HCl (Vancomycin) Confirm Administered Dose 2 gm .ROUTE .STK-MED ONE Stop: 04/04/18 23:45 Last Admin: 04/05/18 01:26 Dose: Not Given - Exam Quality Assessment: Supplemental Oxygen General: Alert, Oriented Lungs: Clear to Auscultation, Normal Respiratory Effort Cardiovascular: Regular Rate, Regular Rhythm Extremities: No Pedal Edema - Problem List & Annotations (1) Cellulitis SNOMED Code(s): 868786573 Code(s): L03.90 - CELLULITIS, UNSPECIFIED Status: Acute Current Visit: Yes Qualifiers: Site of cellulitis: extremity Site of cellulitis of extremity: upper extremity Laterality: left Qualified Code(s): L03.114 - Cellulitis of left upper limb - Problem List Review Problem List Initiated/Reviewed/Updated: Yes - Plan Plan:: Cellulitis of the left arm Improving Has been treated with Zosyn and vancomycin Due to acute renal failure stopped the vancomycin continue Zosyn Acute renal failure Likely relates to vancomycin, stop vancomycin off jero inhibitor will start IVF recheck BMP in am Hypokalemia replaced will recheck in AM COPD Treat with mometasone, formoterol scheduled, albuterol prn taper oxygen as possible Anxiety Will use Xanax as needed Started Paxil DVT prophylaxis with Lovenox
[2018-04-09] MEDS ORDERED: Sodium Chloride 0.9% 1,000 ML IV SCH (13:30)
[2018-04-09] MEDS: atorvaSTATin 20 MG Tab PO SCH (20:11)
[2018-04-09] MEDS: Gabapentin 300 MG Cap PO SCH (20:11)
[2018-04-09] MEDS: ALPRAZolam 0.5 MG Tab PO PRN (22:12)
[2018-04-10] MEDS: Piperacillin/Tazobactam 3.375 GM in Sodium Chloride 0.9% 100 ML IV SCH (05:42)
[2018-04-10] MEDS ORDERED: Enoxaparin 30 MG/0.3 ML Syringe SUBCUT SCH (09:00)
[2018-04-10] MEDS: Formoterol/Mometasone 200-5 MCG 8.8 GM Inhaler IH SCH (09:49)
[2018-04-10] MEDS: PARoxetine 20 MG Tab PO SCH (09:49)
[2018-04-10 10:11] LABS: ANION GAP 13.5
[2018-04-10] MEDS ORDERED: Potassium Chloride 10 MEQ Tab.ER PO ONE (10:49)
--- NOTE | 2018-04-10 10:57 | PCM.DCSUM1 ---
Discharge Summary - Hospital Course Free Text/Narrative:: Cellulitis of the left arm Improving Has been treated with Zosyn and vancomycin Blood culture was negative, wound culture show strep and staph, oxacillin sensitive Continue oral antibiotics with Keflex n Acute renal failure Likely relates to vancomycin, Appears improving off jero inhibitor Will need further monitoring as outpatient COPD Treat with mometasone, formoterol scheduled, albuterol prn taper oxygen as possible Anxiety Will use Xanax as needed Started Paxil - Discharge Data Discharge Date: 04/10/18 Discharge Disposition: Home, Self-Care 01 Condition: Good - Discharge Diagnosis/Problem(s) (1) Cellulitis SNOMED Code(s): 355620635 ICD Code: L03.90 - CELLULITIS, UNSPECIFIED Status: Acute Current Visit: Yes Qualifiers: Site of cellulitis: extremity Site of cellulitis of extremity: upper extremity Laterality: left Qualified Code(s): L03.114 - Cellulitis of left upper limb - Patient Instructions Diet: Heart Healthy Diet Activity: As Tolerated - Discharge Plan Prescriptions/Med Rec: ALPRAZolam [Xanax] 0.25 mg PO BID PRN #12 tablet PRN Reason: Anxiety Cephalexin [Keflex] 500 mg PO TID #21 cap PARoxetine [Paxil] 20 mg PO DAILY #30 tablet Home Medications: Home Meds Albuterol Sulfate [Proair Respiclick] 90 mcg IH Q6H PRN 04/04/18 [History] Albuterol/Ipratropium [DuoNeb 3.0-0.5 MG/3 ML] 3 ml INH Q12H PRN 04/04/18 [ History] Budesonide/Formoterol Fumarate [Symbicort 160-4.5 Mcg Inhaler] 10.2 gm INH BID 04/04/18 [History] Gabapentin [Neurontin] 600 mg PO BEDTIME 04/04/18 [History] Omeprazole 20 mg PO QPM PRN 04/04/18 [History] Sildenafil Citrate [Sildenafil] 100 mg PO DAILY PRN 04/04/18 [History] atorvaSTATin Calcium [Atorvastatin Calcium] 20 mg PO BEDTIME 04/04/18 [History] ALPRAZolam [Xanax] 0.25 mg PO BID PRN #12 tablet 04/10/18 [Rx] Acetaminophen [Tylenol] 650 mg PO Q4H PRN tablet 04/10/18 [Rx] Cephalexin [Keflex] 500 mg PO TID #21 cap 04/10/18 [Rx] PARoxetine [Paxil] 20 mg PO DAILY #30 tablet 04/10/18 [Rx] Forms: ED Department Discharge Referrals: PCP,Unobtain [Ordering Only Provider] - ([facility] in 3-4 days) - Discharge Summary/Plan Comment DC Time >30 min.: No - General Info Date of Service: 04/10/18 Admission Dx/Problem (Free Text: Cellulitis of left upper extremity Functional Status: Reports: Pain Controlled - Review of Systems General: Denies: Fever Pulmonary: Denies: Shortness of Breath Cardiovascular: Denies: Chest Pain Psychiatric: Reports: Anxiety - Patient Data Vitals - Most Recent: Last Vital Signs Temp 37.5 C 04/10/18 07:00 Pulse 88 04/10/18 07:00 Resp 18 04/10/18 07:00 BP 148/79 H 04/10/18 07:00 Pulse Ox 20 L 04/10/18 07:00 Weight - Most Recent: 81.647 kg I&O - Last 24 hours: Intake & Output 04/09/18 04/10/18 04/10/18 22:59 06:59 14:59 Intake Total 636 1168 560 Output Total 600 800 Balance 36 368 560 Lab Results - Last 24 hrs: Laboratory Results - last 24 hr 04/10/18 04/10/18 Range/Units 09:40 09:40 WBC 10.9 H (5.0-10.0) 10^3/uL RBC 3.55 L (4.6-6.2) 10^6/uL Hgb 11.9 L (14.0-18.0) g/dL Hct 35.9 L (40.0-54.0) % MCV 101.1 H (80-100) fL MCH 33.5 (27.0-34.0) pg MCHC 33.1 (33.0-35.0) g/dL Plt Count 321 (150-450) 10^3/uL Neut % (Auto) 81.0 H (42.2-75.2) % Lymph % (Auto) 9.4 L (20.5-50.1) % [place] % (Auto) 7.7 (2-8) % Eos % (Auto) 1.3 (1.0-3.0) % Baso % (Auto) 0.6 (0.0-1.0) % Sodium 140 (135-145) mmol/L Potassium 3.5 L (3.6-5.0) mmol/L Chloride 107 (101-111) mmol/L Carbon Dioxide 23.0 (21.0-31.0) mmol/L Anion Gap 13.5 BUN 20 H (7-18) mg/dL Creatinine 2.4 H (0.6-1.3) mg/dL Est Cr Clr Drug Dosing 29.99 mL/min Estimated GFR (MDRD) 27 Glucose 152 H (74-105) mg/dL Calcium 8.7 (8.4-10.2) mg/dl MEENA Results - Last 24 hrs: Microbiology 04/04/18 09:57 Aerobic Blood Culture - Final Blood - Venous NO GROWTH AFTER 5 DAYS Anaerobic Blood Culture - Final NO GROWTH AFTER 5 DAYS 04/04/18 09:46 Aerobic Blood Culture - Final Blood - Venous - Lab Draw NO GROWTH AFTER 5 DAYS Anaerobic Blood Culture - Final NO GROWTH AFTER 5 DAYS Med Orders - Current: Current Medications Acetaminophen (Tylenol) 650 mg PO Q4H PRN PRN Reason: Pain (Mild 1-3)/fever Last Admin: 04/07/18 22:32 Dose: 650 mg Hydrocodone Bitart/Acetaminophen ([place] 325-10 Mg) 1 tab PO Q4H PRN PRN Reason: Pain (moderate 4-6) Albuterol (Proventil Hfa) 0 gm INH Q6H PRN PRN Reason: Shortness of Breath Last Admin: 04/10/18 10:00 Dose: 1 puff Alprazolam (Xanax) 1 mg PO Q8H PRN PRN Reason: Anxiety Last Admin: 04/09/18 22:12 Dose: 1 mg Atorvastatin Calcium (Lipitor) 20 mg PO BEDTIME JOSIAH Last Admin: 04/09/18 20:11 Dose: 20 mg Enoxaparin Sodium (Lovenox) 30 mg SUBCUT DAILY JOSIAH Last Admin: 04/10/18 09:50 Dose: 30 mg Gabapentin (Neurontin) 600 mg PO BEDTIME JOSIAH Last Admin: 04/09/18 20:11 Dose: 600 mg Piperacillin Sod/Tazobactam (Sod 3.375 gm/ Sodium Chloride) 100 mls @ 200 mls/ hr IV Q8HR [facility] Last Admin: 04/10/18 05:42 Dose: 200 mls/hr Sodium Chloride (Normal Saline) 1,000 mls @ 75 mls/hr IV ASDIRECTED [facility] Last Admin: 04/09/18 18:10 Dose: 75 mls/hr Mometasone Furoate/Formoterol Fumar (Dulera 200-5 Mcg) 2 puff IH BID [facility] Last Admin: 04/10/18 09:49 Dose: 2 puff Morphine Sulfate (Morphine) 2 mg IVPUSH Q2H PRN PRN Reason: Pain (severe 7-10) Omeprazole (Omeprazole) 20 mg PO BEDTIME PRN PRN Reason: Heartburn Ondansetron HCl (Zofran Odt) 4 mg PO Q4H PRN PRN Reason: nausea, able to take PO Paroxetine HCl (Paxil) 20 mg PO DAILY [facility] Last Admin: 04/10/18 09:49 Dose: 20 mg Potassium Chloride (Klor-Con 10) 40 meq PO ONETIME ONE Stop: 04/10/18 10:50 Sodium Chloride (Saline Flush) 10 ml FLUSH ASDIRECTED PRN PRN Reason: Keep Vein Open Last Admin: 04/09/18 14:57 Dose: 10 ml Zolpidem Tartrate (Ambien) 5 mg PO BEDTIME PRN PRN Reason: Sleep Discontinued Medications Albuterol/Ipratropium (Duoneb 3.0-0.5 Mg/3 Ml) 3 ml INH Q12H PRN PRN Reason: Shortness of Breath Last Admin: 04/08/18 22:16 Dose: 3 ml Alprazolam (Xanax) 0.5 mg PO Q8H PRN PRN Reason: Anxiety Enoxaparin Sodium (Lovenox) 40 mg SUBCUT DAILY [facility] Last Admin: 04/09/18 09:28 Dose: 40 mg Vancomycin HCl 1.5 gm/ Sodium (Chloride) 500 mls @ 334 mls/hr IV ONETIME ONE Stop: 04/04/18 11:09 Last Admin: 04/04/18 10:29 Dose: 334 mls/hr Piperacillin Sod/Tazobactam (Sod 3.375 gm/ Sodium Chloride) 100 mls @ 200 mls/ hr IV Q6HR [facility] Last Admin: 04/07/18 12:38 Dose: Not Given Vancomycin HCl 1.25 gm/ Sodium (Chloride) 250 mls @ 166.667 mls/hr IV Q8H [facility] Last Admin: 04/05/18 17:08 Dose: Not Given Vancomycin HCl 1 gm/ Sodium (Chloride) 250 mls @ 166.667 mls/hr IV Q12H [facility] Last Admin: 04/07/18 10:57 Dose: Not Given Non-Formulary Medication (Meloxicam [Mobic]) 15 mg PO DAILY [facility] Last Admin: 04/07/18 14:00 Dose: Not Given Potassium Chloride (Klor-Con 10) 40 meq PO ONETIME ONE Stop: 04/04/18 13:07 Last Admin: 04/04/18 14:30 Dose: 40 meq Potassium Chloride (Klor-Con 10) 20 meq PO TIDMEALS [facility] Last Admin: 04/07/18 12:35 Dose: Not Given Potassium Chloride (Klor-Con 10) 20 meq PO BIDMEALS [facility] Stop: 04/08/18 18:01 Last Admin: 04/08/18 17:14 Dose: 20 meq Vancomycin HCl (Pharmacy To Dose - Vancomycin) 1 dose .XX ASDIRECTED [facility] Vancomycin HCl (Vancomycin) Confirm Administered Dose 2 gm .ROUTE .STK-MED ONE Stop: 04/04/18 23:45 Last Admin: 04/05/18 01:26 Dose: Not Given - Exam General: Reports: Alert, Oriented Neck: Reports: Supple Lungs: Reports: Clear to Auscultation, Normal Respiratory Effort Cardiovascular: Reports: Regular Rate, Regular Rhythm GI/Abdominal Exam: Normal Bowel Sounds, Soft, Non-Tender Extremities: Other (Left upper extremity with moderate induration, red/ brownish discoloration, no abscess palpable, no drainage, no open wound) Psy/Mental Status: Reports: Alert, Normal Affect
== END 2018-04-10 12:50 | disposition home or self-care (01) | DRG 603 ==
LOC: DL.ED 09:12 → UNDOADMIN 11:41 → DL.MS 11:41
PROVIDERS: ADMIT Internal Medicine; ATTEND Internal Medicine
DX: L03.114 Cellulitis of left upper limb (principal); N17.9 Acute kidney failure, unspecified; B95.8 Unspecified staphylococcus as the cause of diseases classified elsewhere; B95.5 Unspecified streptococcus as the cause of diseases classified elsewhere; T36.8X5A Adverse effect of other systemic antibiotics, initial encounter; J44.9 Chronic obstructive pulmonary disease, unspecified; I10 Essential (primary) hypertension; E78.5 Hyperlipidemia, unspecified; F17.210 Nicotine dependence, cigarettes, uncomplicated; H54.7 Unspecified visual loss; H91.90 Unspecified hearing loss, unspecified ear; K21.9 Gastro-esophageal reflux disease without esophagitis; N42.9 Disorder of prostate, unspecified; R33.9 Retention of urine, unspecified; M19.90 Unspecified osteoarthritis, unspecified site; E87.6 Hypokalemia; F41.9 Anxiety disorder, unspecified; Z66 Do not resuscitate; Z79.899 Other long term (current) drug therapy; Z88.8 Allergy status to other drugs, medicaments and biological substances
CPT/HCPCS: 36415; 73200-LT; 80048; 80053; 80202; 83605; 84132; 85025; 85027; 85651; 86140; 87040; 87070; 87077; 87186; 94640; 96365; 99284; 99285; A9270-GY; J1650; J2543; J3370; J7030; J7040; J7050

== ENCOUNTER 2018-07-22 11:30 | Emergency (ER) | payer OTHER, MEDICARE ==
--- NOTE | 2018-07-22 11:53 | EDM.PDOC ---
ED HPI GENERAL MEDICAL PROBLEM - General Stated Complaint[facility] Time Seen by Provider: 07/22/18 11:34 Source of Information: Reports: Patient, RN History Limitations: Reports: No Limitations - History of Present Illness INITIAL COMMENTS - FREE TEXT/NARRATIVE: This 68 yo male patient was sent to the ED from the [facility] due to a cellulitis in his right forearm. The patient has been seen by the [facility] and was started on Keflex 1 week ago. The patient reports the area is getting worse. The patient reports he has been keeping the area covered and has been putting topical antibiotic ointment on the wound. The patient reports that he had a similar episode on his left arm in the past. During that episode, the patient started to have kidney failure and was admitted. The patient reports that he [facility]. The patient reports that he drinks ETOH and smokes with no plans on quitting until he is "six feet under." Duration: Week(s):, Constant, Getting Worse Location: Reports: Upper Extremity, Right Quality: Reports: Ache, Dull Severity: Moderate Improves with: Reports: None Worsens with: Reports: None Associated Symptoms: Reports: No Other Symptoms - Related Data Allergies Allergy/AdvReac Type Severity Reaction Status Date / Time simvastatin Allergy Cannot Verified 04/04/18 12:09 Remember Home Meds: Home Meds Albuterol Sulfate [Proair Respiclick] 90 mcg IH Q6H PRN 04/04/18 [History] Albuterol/Ipratropium [DuoNeb 3.0-0.5 MG/3 ML] 3 ml INH Q12H PRN 04/04/18 [ History] Budesonide/Formoterol Fumarate [Symbicort 160-4.5 Mcg Inhaler] 10.2 gm INH BID 04/04/18 [History] Gabapentin [Neurontin] 600 mg PO BEDTIME 04/04/18 [History] Omeprazole 20 mg PO QPM PRN 04/04/18 [History] Sildenafil Citrate [Sildenafil] 100 mg PO DAILY PRN 04/04/18 [History] atorvaSTATin Calcium [Atorvastatin Calcium] 20 mg PO BEDTIME 04/04/18 [History] ALPRAZolam [Xanax] 0.25 mg PO BID PRN #12 tablet 04/10/18 [Rx] Acetaminophen [Tylenol] 650 mg PO Q4H PRN tablet 04/10/18 [Rx] PARoxetine [Paxil] 20 mg PO DAILY #30 tablet 04/10/18 [Rx] cephALEXin [Keflex] 500 mg PO TID #21 cap 04/10/18 [Rx] Past Medical History HEENT History: Reports: Hard of Hearing, Impaired Vision Cardiovascular History: Reports: High Cholesterol, Hypertension Respiratory History: Reports: COPD Gastrointestinal History: Reports: GERD Genitourinary History: Reports: Prostate Disorder, Retention, Urinary Musculoskeletal History: Reports: Arthritis - Past Surgical History GI Surgical History: Reports: Hernia, Inguinal Social & Family History - Family History Family Medical History: Noncontributory - Caffeine Use Caffeine Use: Reports: Coffee, Soda ED ROS GENERAL - Review of Systems Review Of Systems: ROS reveals no pertinent complaints other than HPI. ED EXAM, SKIN/RASH Exam: See Below Exam Limited By: No Limitations General Appearance: Alert, WD/WN, No Apparent Distress Eye Exam: Bilateral Eye: EOMI, Normal Inspection, PERRL Ears: Normal External Exam, Normal Canal, Hearing Grossly Normal, Normal TMs Nose: Normal Inspection, Normal Mucosa, No Blood Throat/Mouth: Normal Inspection, Normal Lips, Normal Teeth, Normal Gums, Normal Oropharynx, Normal Voice, No Airway Compromise Head: Atraumatic, Normocephalic Neck: Normal Inspection, Supple, Non-Tender, Full Range of Motion Respiratory/Chest: No Respiratory Distress, Lungs Clear, Normal Breath Sounds, No Accessory Muscle Use, Chest Non-Tender Cardiovascular: Normal Peripheral Pulses, Regular Rate, Rhythm, No Edema, No Gallop, No JVD, No Murmur, No Rub GI/Abdominal: Normal Bowel Sounds, Soft, Non-Tender, No Organomegaly, No Distention, No Abnormal Bruit, No Mass (Male) Exam: Deferred Rectal (Males) Exam: Deferred Back Exam: Normal Inspection, Full Range of Motion, NT Extremities: Arm Pain (right forearm) Neurological: Alert, Oriented, CN II-XII Intact, Normal Cognition, Normal Gait, Normal Reflexes, No Motor/Sensory Deficits Psychiatric: Normal Affect, Normal Mood Skin: Increased Warmth, Wound/Incision Location, Skin: Upper Extremity, Right Associated features: Warmth, Tenderness, Inflammation Lymphatic: No Adenopathy Course - Vital Signs Last Recorded V/S: Last Vital Signs Temp 36.9 C 07/22/18 11:37 Pulse 86 07/22/18 11:37 Resp 18 07/22/18 11:37 BP 114/68 07/22/18 11:37 Pulse Ox 100 07/22/18 11:37 - Orders/Labs/Meds Orders: Active Orders 24 hr Category Date Time Status CULTURE BLOOD [BC] Stat Lab 07/22/18 11:37 Ordered CULTURE BLOOD [BC] Stat Lab 07/22/18 11:47 Received Blood Culture x2 Reflex Set [OM.PC] Stat Oth 07/22/18 11:37 Ordered Labs: Laboratory Tests 07/22/18 07/22/18 07/22/18 Range/Units 11:40 11:40 11:40 WBC 6.2 (5.0-10.0) 10^3/uL RBC 3.48 L (4.6-6.2) 10^6/uL Hgb 11.4 L (14.0-18.0) g/dL Hct 34.4 L (40.0-54.0) % MCV 98.9 (80-100) fL MCH 32.8 (27.0-34.0) pg MCHC 33.1 (33.0-35.0) g/dL Plt Count 279 (150-450) 10^3/uL Neut % (Auto) 68.2 (42.2-75.2) % Lymph % (Auto) 17.1 L (20.5-50.1) % [place] % (Auto) 13.1 H (2-8) % Eos % (Auto) 0.8 L (1.0-3.0) % Baso % (Auto) 0.8 (0.0-1.0) % Add Manual Diff Yes Neutrophils % (Manual) 65 (42-75) % Band Neutrophils % 7 % Lymphocytes % (Manual) 16 L (20-50) % Monocytes % (Manual) 11 H (2-8) % Eosinophils % (Manual) 1 (1-3) % Sodium 131 L (135-145) mmol/L Potassium 3.5 L (3.6-5.0) mmol/L Chloride 94 L D (101-111) mmol/L Carbon Dioxide 28.0 (21.0-31.0) mmol/L Anion Gap 12.5 BUN 13 (7-18) mg/dL Creatinine 0.9 D (0.6-1.3) mg/dL Est Cr Clr Drug Dosing 79.98 mL/min Estimated GFR (MDRD) > 60 BUN/Creatinine Ratio 14.44 Glucose 99 (74-105) mg/dL Lactic Acid 1.4 (0.5-2.2) mmol/L Calcium 8.2 L (8.4-10.2) mg/dl Total Bilirubin 0.9 (0.2-1.0) mg/dL AST 32 (10-42) IU/L ALT 26 (10-60) IU/L Alkaline Phosphatase 81 (42-121) IU/L Total Protein 6.2 L (6.7-8.2) g/dl Albumin 3.0 L (3.2-5.5) g/dl Globulin 3.2 Albumin/Globulin Ratio 0.94 Departure - Departure Time of Disposition: 12:39 Disposition: Admitted As Inpatient 65 Condition: Fair Clinical Impression: Cellulitis Qualifiers: Site of cellulitis: extremity Site of cellulitis of extremity: upper extremity Laterality: left Qualified Code(s): L03.114 - Cellulitis of left upper limb - Discharge Information *PRESCRIPTION DRUG MONITORING PROGRAM REVIEWED*: Not Applicable *COPY OF PRESCRIPTION DRUG MONITORING REPORT IN PATIENT RUBEN: Not Applicable Instructions: Cellulitis, Adult, [id number] Care Plan Goals: Discussed the patient's history, examination and lab results with Dr. Granger. Dr. Granger accepted the patient for continued evaluation and management as an inpatient at [facility]. - My Orders Last 24 Hours: My Active Orders 07/22/18 11:37 CULTURE BLOOD [BC] Stat Blood Culture x2 Reflex Set [OM.PC] Stat 07/22/18 11:47 CULTURE BLOOD [BC] Stat - Assessment/Plan Last 24 Hours: My Active Orders 07/22/18 11:37 CULTURE BLOOD [BC] Stat Blood Culture x2 Reflex Set [OM.PC] Stat 07/22/18 11:47 CULTURE BLOOD [BC] Stat
[2018-07-22 12:09] LABS: ANION GAP 12.5; CHLORIDE,CL 94 mmol/L (101-111); SODIUM,NA 131 mmol/L (135-145)
== END 2018-07-22 12:43 | disposition critical access hospital (66) ==
LOC: DL.ED 11:30 → DL.MS 12:51 → UNDOADMIN 12:51
DX: L03.113 Cellulitis of right upper limb (principal); Z88.1 Allergy status to other antibiotic agents; I10 Essential (primary) hypertension; Z79.899 Other long term (current) drug therapy
CPT/HCPCS: 36415; 80053; 83605; 85025; 87040; 99285; J3370; J7050

== ENCOUNTER 2018-08-24 10:46 | Emergency (ER) | payer OTHER, MEDICARE ==
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
[2018-08-24] MEDS: Sodium Chloride 0.9% 10 ML Syringe FLUSH PRN (11:21)
[2018-08-24] MEDS: Sodium Chloride 0.9% 1,000 ML IV ONE (11:21)
[2018-08-24 11:48] LABS: ANION GAP 18.8; CHLORIDE,CL 93 mmol/L (101-111); SODIUM,NA 133 mmol/L (135-145)
--- NOTE | 2018-08-24 12:01 | CR ---
Clinical history: 68-year-old hypotensive male with generalized weakness and tachycardia. Interpretation: Upright AP portable chest film demonstrates asymmetric patchy new right lower lobe at electasis or developing infiltrate. 12 May 2018 exam. Normal cardiac silhouette without cephalization of vascular flow, signs of alveolar edema or dependen t effusion. No new lung mass, hilar lymphadenopathy or other focal lobar consolidation. No pneumothorax. CONCLUSION: No signs of heart failure. Patchy new right lower lobe consolidation (see above).
--- NOTE | 2018-08-24 12:04 | CR ---
Clinical history: 68-year-old male history of "falls" and right wrist injury. Interpretation: Soft tissue swelling dorsum of the wrist without sign of underlying fracture or radio carpal dislocation. Chronic arthritic changes i.e. joint space narrowing with reactive sclerosis radiocarpal joint. Multi ple cystic lesions (screw holes?) Identified in several carpal bones of the wrist. No foreign bodies. No metacarpal fracture or dislocation. CONCLUSION: Arthritic degenerative changes. Soft tissue swelling. No acute fracture or dislocation.
[2018-08-24] MEDS: cefTRIAXone 1 GM Vial IVPUSH ONE (12:20)
[2018-08-24] MEDS: Aspirin 81 MG Tab.Chew PO ONE (12:23)
[2018-08-24] MEDS: Potassium Chloride 10 MEQ in Premix Bag 1 BAG IV ONE (12:28)
[2018-08-24] MEDS: Thiamine 100 MG in Sodium Chloride 0.9% 100 ML IV ONE (12:37)
[2018-08-24] MEDS: Folic Acid 50 MG/10 ML MDV ONE (13:14)
[2018-08-24] MEDS: MVI, Adult with Vitamin K 10 ML SDV IV ONE (13:14)
[2018-08-24] MEDS: MVI, Adult with Vitamin K 10 ML, Thiamine 100 MG, Folic Acid 1 MG, Magnesium Sulfate 2 ... IV ONE ×5 (13:15)
[2018-08-24] MEDS: Thiamine 200 MG/2 ML MDV ONE (14:10)
== END 2018-08-24 13:30 ==
LOC: DL.ED 10:46
DX: A41.9 Sepsis, unspecified organism (principal); I21.4 Non-ST elevation (NSTEMI) myocardial infarction; J18.9 Pneumonia, unspecified organism; I48.91 Unspecified atrial fibrillation; F10.239 Alcohol dependence with withdrawal, unspecified; E87.6 Hypokalemia; E86.0 Dehydration; D61.818 Other pancytopenia; S00.212A Abrasion of left eyelid and periocular area, initial encounter; I10 Essential (primary) hypertension; Z88.8 Allergy status to other drugs, medicaments and biological substances; Z79.899 Other long term (current) drug therapy; F17.210 Nicotine dependence, cigarettes, uncomplicated; W19.XXXA Unspecified fall, initial encounter
CPT/HCPCS: 36415; 71045; 73110-RT; 80053; 82550; 83605; 83735; 84443; 84484; 85025; 87040; 87077; 93005; 96361; 96365; 96375; 99285; A9270-GY; G0480; J0696; J3411; J3475; J3480; J3490; J7030; J7050; J7120